=== PATIENT | female | born 1985 | race Caucasian/White ===

== ENCOUNTER 2019-08-30 07:52 | Emergency (ER) | payer OTHER ==
[~2019-08-30] VITALS: Ht 162.6 cm; Wt 83.5 kg
[~2019-08-30 07:52] MED LIST: NOR10T PO; NORCO
[2019-08-30 07:53] VITALS: Ht 162.6 cm; Wt 83.5 kg
[2019-08-30 09:51] VITALS: BP 140/96
== END 2019-08-30 10:10 | disposition home or self-care (01) ==
LOC: ED 07:52
DX: G43.909 Migraine, unspecified, not intractable, without status migrainosus (principal); F41.9 Anxiety disorder, unspecified; F32.9 Major depressive disorder, single episode, unspecified; Z88.6 Allergy status to analgesic agent
CPT/HCPCS: J0780; J1200; J1885

== ENCOUNTER 2019-12-02 11:24 | Emergency (ER) | payer OTHER ==
[~2019-12-02] VITALS: Ht 162.6 cm; Wt 77.1 kg
[2019-12-02 11:53] VITALS: Ht 162.6 cm; Wt 77.1 kg
[2019-12-02 12:06] LABS: CALCIUM 8.8 mg/dL (8.5-10.1); CARBON DIOXIDE 29.8 mmol/L (21-32); CHLORIDE SERUM 103 mmol/L (98-107); GFR1 > 60 mL/min; GLUCOSE SERUM 88 mg/dL (74-106); POTASSIUM SERUM 3.7 mmol/L (3.5-5.1); SODIUM SERUM 137 mmol/L (136-145)
[2019-12-02 12:11] LABS: ALBUMIN 3.6 g/dL (3.4-5.0); ALKALINE PHOSPHATASE 61 U/L (46-116); ALT/SGPT 23 U/L (14-59); AST/SGOT 14 U/L (15-37); BILIRUBIN TOTAL 0.4 mg/dL (0.20-1.00)
[2019-12-02 12:34] LABS: BASOPHIL % 0.9 % (0-2); PLATELET COUNT 236 x10^3mcL (130-400); RED CELL DISTRIBUTION WIDTH 14.5 % (11.5-14.5)
[2019-12-02 13:05] LABS: UA SPECIFIC GRAVITY 1.015 (1.005-1.035); microscopic required? YES; urine erythrocyte TRACE (NEGATIVE)
[2019-12-02 14:57] VITALS: BP 134/68
== END 2019-12-02 14:57 | disposition home or self-care (01) ==
LOC: ED 11:24
PROVIDERS: Emergency Medicine
DX: S09.8XXA Other specified injuries of head, initial encounter (principal); E86.0 Dehydration; Z88.6 Allergy status to analgesic agent; R55 Syncope and collapse; Z98.84 Bariatric surgery status; W22.8XXA Striking against or struck by other objects, initial encounter; Y93.89 Activity, other specified; Y92.89 Other specified places as the place of occurrence of the external cause; Y99.8 Other external cause status
CPT/HCPCS: J1885; J2405; J7030; Q0092